=== PATIENT | female | born 1995 | race African-American/Black ===

== ENCOUNTER 2017-05-27 12:06 | Inpatient (IN) | payer OTHER ==
[~2017-05-27] VITALS: Ht 170.2 cm; Wt 95.0 kg
[2017-05-27 12:15] VITALS: Ht 170.2 cm; Wt 95.0 kg
[2017-05-27 15:45] VITALS: BP 148/87
[2017-05-27 15:45] LABS: BASOPHIL % 0.2 % (0-2); CHOLESTEROL/HDL RATIO 3.1; MAGNESIUM 1.8 mg/dL (1.8-2.4); PHOSPHOROUS 2.6 mg/dL (2.5-4.9); PLATELET COUNT 355 x10^3mcL (130-400); RED CELL DISTRIBUTION WIDTH 13.3 % (11.5-14.5)
[2017-05-27 15:55] LABS: T3 TOTAL 1.46 ng/mL
[2017-05-27 15:57] LABS: FREE T4 1.08 ng/dL (0.76-1.46); T4(THYROXINE) 8.8 ug/dL (4.7-13.3)
[2017-05-27 16:02] LABS: CALCIUM 8.9 mg/dL (8.5-10.1); CARBON DIOXIDE 26.1 mmol/L (21-32); CHLORIDE SERUM 105 mmol/L (98-107); CREATININE SERUM 0.7 mg/dL (0.6-1.0); GFR1 > 60 mL/min; GLUCOSE SERUM 94 mg/dL (74-106); POTASSIUM SERUM 3.7 mmol/L (3.5-5.1); SODIUM SERUM 139 mmol/L (136-145)
[2017-05-27 18:35] VITALS: BP 122/73
[2017-05-27 19:08] LABS: microscopic required? NO
[2017-05-27 19:41] LABS: UA SPECIFIC GRAVITY 1.015 (1.005-1.035); urine erythrocyte NEGATIVE (NEGATIVE)
[2017-05-27 19:50] LABS: AMPHETAMINE QUAL UR NONE DETECTED (NEG <=1000)
[2017-05-27 21:44] VITALS: BP 117/64
[2017-05-28 05:45] VITALS: BP 111/65
[2017-05-28 09:56] VITALS: BP 133/91
[2017-05-28 15:21] VITALS: BP 131/76
[2017-05-28 17:57] VITALS: BP 124/67
[2017-05-28 20:53] VITALS: BP 129/69
[2017-05-29 06:11] VITALS: BP 112/57
[2017-05-29] MEDS ORDERED: ONDANSETRON4 M3 PO ×2 (07:08→14:01)
[2017-05-29] MEDS ORDERED: COLACE100 MG PO ×2 (07:08→14:01)
[2017-05-29] MEDS ORDERED: NORCO1 TA2 PO (07:08)
[2017-05-29 07:19] LABS: CALCIUM 8.9 mg/dL (8.5-10.1); CARBON DIOXIDE 23.8 mmol/L (21-32); CHLORIDE SERUM 106 mmol/L (98-107); CREATININE SERUM 0.6 mg/dL (0.6-1.0); GFR1 > 60 mL/min; GLUCOSE SERUM 93 mg/dL (74-106); POTASSIUM SERUM 3.8 mmol/L (3.5-5.1); SODIUM SERUM 141 mmol/L (136-145)
[2017-05-29 07:37] LABS: BASOPHIL % 0.2 % (0-2); PLATELET COUNT 297 x10^3mcL (130-400); RED CELL DISTRIBUTION WIDTH 13.4 % (11.5-14.5)
[2017-05-29 09:17] VITALS: BP 127/58
[2017-05-29 13:10] VITALS: BP 127/58
== END 2017-05-29 15:42 | disposition home or self-care (01) | DRG 494 ==
LOC: ED 12:06 → DU 13:44 → MU 13:44 → DU 15:32 → MU 21:30
PROVIDERS: Family Medicine
PROC: 0QSJ04Z Reposition Right Fibula with Internal Fixation Device, Open Approach (ICD-10-PCS; principal; 2017-05-27)
PROC: 0QSG04Z Reposition Right Tibia with Internal Fixation Device, Open Approach (ICD-10-PCS; 2017-05-27)
DX: S82.841A Displaced bimalleolar fracture of right lower leg, initial encounter for closed fracture (principal); E66.9 Obesity, unspecified; Z68.32 Body mass index [BMI] 32.0-32.9, adult; W10.8XXA Fall (on) (from) other stairs and steps, initial encounter; Y92.89 Other specified places as the place of occurrence of the external cause; Y99.0 Civilian activity done for income or pay
CPT/HCPCS: 82962; 83880; 84439; 97110-GP; 97116-GP; 97530-GP; C1713; C9359; J0690; J1170; J1644; J1885; J2405; J2704; J3010; J3490; J7030; J7120; Q0092